=== PATIENT | male | born 1970 ===

== ENCOUNTER 2024-06-02 01:02 | Emergency (ER) | payer SELFPAY ==
[2024-06-02 01:10] VITALS: BP 182/84; PULSE 102; O2SAT 99; BMI 39.2
--- NOTE | 2024-06-02 01:37 | ED_ITS ---
HPI - General Adult General Chief complaint: General Medical Stated complaint: Pain in both knees, ETOH, was w/ PD Time Seen by Provider: 06/02/24 01:35 Source: patient and EMS Mode of arrival: EMS Limitations: no limitations History of Present Illness ED Provider: Dr. Heidi Gay HPI narrative: Patient comes to the emergency room by ambulance. According to EMS, the patient [place] with police department. Seems that patient was complaining of bilateral knee pain. Patient states that he has chronic knee pain and wanted to be evaluated. However, when patient got to the emergency room, patient states that he was brought against his will, patient does not want to be evaluated. Patient states that he wants to go home. Patient denies SI or HI, denies substance abuse. Related Data Allergies Allergy/AdvReac Type Severity Reaction Status Date / Time Unable to Assess Allergy Verified 06/02/24 01:26 Review of Systems Review of Systems: Constitutional : No Weight loss, No Fever, No Chills, No Night Sweats, No Fatigue, No Malaise ENT/Mouth : No Hearing loss, No Ear Pain, No Nasal Congestion, No Sinus Pain, No Hoarseness, No sore throat, No Rhinorrhea, No Swallowing Difficulty Eyes: No Eye Pain, No Swelling, No Redness, No Foreign Body, No Discharge, No Vision Changes Cardiovascular : No Chest Pain, No SOB, No Dyspnea on Exertion, No Orthopnea, No Edema, No Palpitations Respiratory : No Cough, No Sputum, No Wheezing, No Smoke Exposure, No Dyspnea Gastrointestinal : No Nausea, No Vomiting, No Diarrhea, No Constipation, No abdominal Pain, No Hematochezia, No Melena Genitourinary : no irregular bleeding, No Dysuria, No Urinary Frequency, No Hematuria, No Urinary Incontinence, No Urgency, No Flank Pain, No Urinary Flow Changes, No Hesitancy Musculoskeletal : No joint pain, No Myalgias, No Joint Swelling Skin : No Skin Lesions, No rash Neuro : No Weakness, No Numbness, No Paresthesias, No Loss of Consciousness, No Dizziness, No Headache Psych denies feeling anxious or depressed, adamant that he is not suicidal or homicidal Heme/Lymph: No Bruising, No Bleeding,No Lymphadenopathy Endocrine : No Polyuria, No Polydipsia, No Temperature Intolerance Physical Exam ED Vital Signs: BMI result Body Mass Index 39.2 Const Other: Appearance: Alert. Oriented X3. No acute distress. Eyes: Pupils equal, round and reactive to light. ENT: Pharynx normal. Neck: Normal inspection. Neck supple. No lymph nodes noted. No crepitus CVS: Normal heart rate and rhythm. Pulses normal. Normal S1 and S2 Respiratory: No respiratory distress. Breath sounds normal. No Wheezing. No rales Abdomen: Soft and nontender. No rigidity. No distention. Skin: Skin warm and dry. Normal skin color. Normal skin turgor. Extremities: No lower extremity edema. No Lacerations. No Rash Neuro: Oriented X 3. No motor deficit. No sensory deficit. Moving all extremities. No slurred speech. CN 2 through 12 grossly intact Psych: calm, cooperative making bizarre statements such as ?I want the secret service and the police now? Medical Decision Making Medical Decision Making [facility] Narrative: Patient's seems a bit paranoid, delusional. However, patient is alert and oriented x3. Calm and cooperative. However, patient states that he was brought against his will and does not want to be evaluated in the emergency room. Patient denies alcohol or polysubstance abuse. Patient does not seem intoxicated or under the influence of drugs -patient adamant that he is not suicidal or homicidal. -discussed with the patient that he would benefit from behavioral health/care team consult. However, patient declined. -at this time, there is no reason to Section 12 the patient. Per patient's request, patient can be discharged Discharge Plan Discharge Clinical Impression: Paranoid behavior Patient Disposition: Home, Self-Care Instructions: Anxiety (ED) Additional Instructions: Please follow-up with your primary care physician tomorrow. If you have any worsening or new symptoms, please return to the emergency room or call 911 Print Language: Unable To Collect
[2024-06-02 02:03] VITALS: BP 0/0; PULSE 0; RESP 0; TEMP -17.7; TEMP 0; O2SAT 0
== END 2024-06-02 02:04 | disposition home or self-care (01) ==
PROVIDERS: Emergency Provider Emergency Medicine
DX: F23 Brief psychotic disorder (principal); M25.562 Pain in left knee; M25.561 Pain in right knee
CPT/HCPCS: 99282; 99284